=== PATIENT | male | born 1985 | race African-American/Black ===

== ENCOUNTER 2019-05-27 10:52 | Emergency (ER) | payer OTHER ==
[2019-05-27] VITALS (11 sets, daily range): BP systolic 109–122; BP diastolic 60–72
[~2019-05-27] VITALS: Ht 167.6 cm; Wt 81.6 kg
[2019-05-27] MEDS ORDERED: DiphenhydrAMINE 50mg/ml Inj IM ONE (11:00)
[2019-05-27] MEDS ORDERED: Haloperidol 5mg/ml Inj IM ONE (11:00)
[2019-05-27] MEDS ORDERED: LORazepam Inj 2mg/ml 1ml IM ONE (11:00)
[2019-05-27] MEDS ORDERED: LORazepam Inj 2mg/ml 1ml ONE (11:49)
[2019-05-27] MEDS ORDERED: Haloperidol 5mg/ml Inj ONE (11:49)
[2019-05-27] MEDS ORDERED: DiphenhydrAMINE 50mg/ml Inj ONE (11:50)
--- NOTE | 2019-05-27 11:56 | NUR ---
ED Nurse Note: Bal Day [employer] Worker by the bedside. Per Dr. Britt, CT head can be done after obtaining blood sample. UA SEN TO LAB
--- NOTE | 2019-05-27 12:39 | NUR ---
ED Nurse Note:' patient taken to CT
[2019-05-27 12:50] LABS: ANION GAP 15 mmol/L (5-15); BLOOD UREA NITROGEN 11 mg/dL (7-18); CALCIUM 8.7 MG/DL (8.5-10.1); CARBON DIOXIDE 22 MMOL/L (21-32); CHLORIDE 99 MMOL/L (98-107); POTASSIUM 3.2 MMOL/L (3.5-5.1); SODIUM 135 MMOL/L (136-145)
[2019-05-27 12:51] LABS: APPEARANCE,URINE CLEAR; BILIRUBIN, URINE NEGATIVE (NEGATIVE); GLUCOSE, URINE (UA) NEGATIVE (NEGATIVE); LEUKOCYTE ESTERASE ,URINE NEGATIVE (NEGATIVE); NITRITE,URINE NEGATIVE (NEGATIVE); PH,URINE 5 (4.5-8.0); PROTEIN,URINE NEGATIVE (NEGATIVE)
[2019-05-27 12:51] LABS: BASOPHILS % (AUTO) 0.7 % (0.0-2.0); EOSINOPHILS % (AUTO) 1.1 % (0.0-3.0); HEMATOCRIT 42.2 % (42.0-52.0); HEMOGLOBIN 13.9 G/DL (14.2-18.0); LYMPHOCYTES % (AUTO) 12.1 % (20.0-45.0); MEAN CORPUSCULAR VOLUME 99 FL (80-99); MONOCYTES % (AUTO) 10.6 % (1.0-10.0); NEUTROPHILS % (AUTO) 75.5 % (45.0-75.0); PLATELET COUNT 274 K/UL (150-450); RED BLOOD COUNT 4.26 M/UL (4.70-6.10); WHITE BLOOD COUNT 9.9 K/UL (4.8-10.8)
[2019-05-27 12:55] LABS: COLOR,URINE PALE YELLOW; KETONES,URINE 3+ (NEGATIVE); UROBILINOGEN,URINE NORMAL MG/DL (0.0-1.0)
--- NOTE | 2019-05-27 13:01 | Diagnostic Imaging Report ---
Indication: Altered mental status Technique: Continuous helical CT scanning of the head was performed without intravenous contrast material. Axial and coronal 5 mm sections were generated. Radiation dose was minimized using automated exposure control Dose: Total Dose Length Product - DLP 1435.[address] Dose Index - CTDIvol(s) 70.38 mGy. Comparison: None FINDINGS: There is no acute intracranial hemorrhage, mass effect or cortical edema. There is no shift of the midline structures. Jameson-white differentiation appears preserved. The ventricles, cisterns and sulci are normal for age. Mastoid air cells are clear. Minimal mucosal thickening noted in the paranasal sinuses. There is no depressed calvarial fracture. IMPRESSION: No evidence of acute intracranial hemorrhage, mass effect or cortical edema. No depressed skull fracture. The CT scanner at [facility] is accredited by the [employer] and the scans are performed using protocols designed to limit radiation exposure to as low as reasonably achievable to attain images of sufficient resolution adequate for diagnostic evaluation.
[2019-05-27 13:08] LABS: ALANINE AMINOTRANSFERASE 39 U/L (12-78); ALBUMIN 3.8 G/DL (3.4-5.0); ALBUMIN/GLOBULIN RATIO 0.9 (1.0-2.7); ALKALINE PHOSPHATASE 109 U/L (46-116); ASPARTATE AMINO TRANSFERASE 91 U/L (15-37); BILIRUBIN,TOTAL 2.4 MG/DL (0.2-1.0)
[2019-05-27 13:21] LABS: BILIRUBIN,DIRECT 0.6 MG/DL (0.0-0.3); CREATINE KINASE 2504 U/L (26-308)
--- NOTE | 2019-05-27 13:35 | Diagnostic Imaging Report ---
Indication: Altered mental status, chest pain Technique: XRAY Chest 1v Comparison: None Findings: Heart size and mediastinal contours are within normal limits for AP technique. There is no focal airspace consolidation, pneumothorax or pleural effusion. Remote/healed right-sided rib fractures. Degenerative changes noted in the left shoulder. Osseous structures demonstrate no acute abnormality. Impression: No definite radiographic evidence of acute cardiopulmonary disease.
--- NOTE | 2019-05-27 13:51 | NUR ---
ED Nurse Note: called lab and spoke with Craig that lactic reflex needs to be drawn. patient is a hard stick.
--- NOTE | 2019-05-27 15:08 | NUR ---
ED Nurse Note: notified Otilio Maven7 regarding the need for lab draw
--- NOTE | 2019-05-27 15:34 | Emergency Room Report ---
History of Present Illness General Chief Complaint: Altered Level of Consciousness Source: EMS (Jesu Britt MD) Source: Patient (João Michele MD) Present Illness HPI Patient brought by EMS for altered level of consciousness picked up at a bus stop. There is some suggestion of multiple drug ingestions. Paramedics suspect possible bath salts. There is also alleged alcohol ingestion. Patient' s been combative and they were able to check blood sugar that was normal. They are unable to start an IV. There is no evidence of head trauma. They are unable to ascertain the patient's identity. No further history is available. (Jesu Britt MD) Allergies: Coded Allergies: UNABLE TO ASSESS (Unverified , 05/27/19) Patient History Limited by: medical condition Social History: Reports: alcohol use - See labs, drug use - See labs Social History Narrative From bus stop. Suspected drug and alcohol ingestion. Reviewed Nursing Documentation: PMH: Agreed; PSxH: Agreed (Jesu Britt MD) Nursing Documentation-PMH Past Medical History Deferred: Patient Unconscious (Jesu Britt MD) Review of Systems All Other Systems: limited (Jesu Britt MD) Physical Exam Vital Signs Date Time Temp Pulse Resp B/P (MAP) Pulse Ox O2 Delivery O2 Flow Rate FiO2 05/27/19 10:44 100 18 125/77 (93) 98 Room Air 05/27/19 12:01 97.1 General Appearance: non-toxic, mild distress, lethargic, Stupor - Not responding to painful stimuli Eyes: bilateral eye PERRL, bilateral eye abnormal EOM - Disconjugate gaze, bilateral eye Scleral Injection, bilateral eye other - No rotatory nystagmus ENT: dry mucus membranes - No lingual macerations, other - Positive gag reflex Neck: supple Respiratory: lungs clear, normal breath sounds Cardiovascular #1: regular rate, rhythm Cardiovascular #2: 2+ radial (R) Gastrointestinal: decreased bowel sounds, scaphoid Musculoskeletal: other - Nonpurposeful movement of extremities with apparent full range of motion without deformity Neurologic: motor strength/tone normal, DTRs symmetric, no Babinski, other - Underscore responsive to painful stimuli Psychiatric: other - Stupor Skin: other - There are without abrasions or hematomata (Jesu Britt MD) Last 24 Hour Vital Signs Date Time Temp Pulse Resp B/P (MAP) Pulse Ox O2 Delivery O2 Flow Rate FiO2 8/9/19 16:42 97.5 92 16 115/62 98 Room Air 05/27/19 15:05 97.1 87 14 109/60 100 Room Air 05/27/19 12:15 92 17 100 Room Air 05/27/19 12:07 98 17 98 Room Air 05/27/19 12:01 97.1 88 16 117/61 100 Room Air 05/27/19 11:59 100 18 Room Air 05/27/19 11:52 72 18 99 Room Air 05/27/19 11:37 80 19 100 Room Air 05/27/19 11:22 82 19 100 Room Air 05/27/19 11:07 72 18 99 Room Air 05/27/19 10:52 80 17 100 Room Air 05/27/19 10:44 100 18 125/77 (93) 98 Room Air Sp02 EP Interpretation: reviewed, normal General Appearance: well appearing, no apparent distress, alert Head: normocephalic, atraumatic Eyes: bilateral eye PERRL, bilateral eye EOMI ENT: uvula midline, moist mucus membranes Neck: supple, thyroid normal, supple/symm/no masses Respiratory: lungs clear, no respiratory distress, no retraction, no accessory muscle use Cardiovascular #1: normal peripheral pulses, regular rate, rhythm, no edema, no gallop, no murmur Gastrointestinal: non tender, soft, no guarding, no rebound Musculoskeletal: normal inspection Neurologic: alert, oriented x3 Psychiatric: mood/affect normal Skin: no rash, warm/dry (João Michele MD) Procedures Critical Care Time Critical Care Time Total Critical Care Time: 90 min bedside evaluation and treatment excludes procedures (EKG). Reason for critical care: Stupor, repeated evaluations, restraints, sedation, elevated lactic acid, elevated CPK with repeated lab evaluations Possible complications: hypotension, hypertension, [place], shock, arrhythmias, metabolic acidosis, end organ damage, respiratory failure. Interventions: Restraints, sedation, CO2 monitoring, repeated evaluations, repeat lab evaluations, IV hydration Course: Patient presents with deep stupor and combative behavior. Restraints applied this patient unaware of combativeness and danger to self and others. Sedation ordered. Due to the stupor CO2 monitoring performed. Repeated examinations and evaluations with sedation. Labs significant for elevated lactic acid and CPK. IV hydration increased. No evidence of infectious source. Neurologic exam slightly improving but patient still lethargic and minimally responsive to painful stimuli. CT head without lesions. Airway and respiratory systems stable. Repeat labs show improving CPK, normal renal function and improving lactic acid. Patient signed out to covering physician for reevaluation. Consultations: nursing staff, EMS, RT Performed by: Dr. Britt Tolerated well condition = critical but improving (Jesu Britt MD) Medical Decision Making Homeless Attestation I, The treating physician Dr. Michele, have assessed and agrees that patient is medically stable for discharge to an outpatient disposition. (João Michele MD) Diagnostic Impression: Primary Impression: Altered level of consciousness Additional Impressions: Substance abuse Alcohol intoxication Qualified Codes: F10.929 - Alcohol use, unspecified with intoxication, unspecified Rhabdomyolysis Qualified Codes: M62.82 - Rhabdomyolysis Elevated lactic acid level ER Course Patient presented via EMS with stupor. Differential includes drug ingestion, alcohol ingestion, head trauma with bleed, electrolyte imbalance, rhabdomyolysis , renal failure, dehydration amongst others. Patient is combative and needs to be sedated and restrained. Evaluation will be with EKG, chest x-ray, CT the head and labs. The patient will be treated with IV hydration. As the patient has decreased mentation with sedation CO2 monitoring will be performed. Sedated. Restraints d/c @ 12:15. CO2 monitoring not increasing. Elevated lactic acid and CPK. IV hydration increased. Patient still somnolent but slightly more responsive to painful stimuli. Labs repeated. Patient continues to be lethargic. CT and chest x-ray unremarkable. Positive amphetamines, cocaine and alcohol. See critical care note. Signed out to Dr. Michele. Laboratory Tests Test 05/27/19 11:35 05/27/19 12:05 05/27/19 15:30 Urine Color Pale yellow Urine Appearance Clear Urine pH 5 (4.5-8.0) Urine Specific [place] 1.015 (1.005-1.035) Urine Protein Negative (NEGATIVE) Urine Glucose (UA) Negative (NEGATIVE) Urine Ketones 3+ (NEGATIVE) H Urine Blood Negative (NEGATIVE) Urine Nitrite Negative (NEGATIVE) Urine Bilirubin Negative (NEGATIVE) Urine Urobilinogen Normal MG/DL (0.0-1.0) Urine Leukocyte Esterase Negative (NEGATIVE) Urine Opiates Screen Negative (NEGATIVE) Urine Barbiturates Screen Negative (NEGATIVE) Phencyclidine (PCP) Screen Negative (NEGATIVE) Urine Amphetamines Screen Positive (NEGATIVE) H Urine Benzodiazepines Screen Negative (NEGATIVE) Urine Cocaine Screen Positive (NEGATIVE) H Urine Marijuana (THC) Screen Negative (NEGATIVE) White Blood Count 9.9 K/UL (4.8-10.8) Red Blood Count 4.26 M/UL (4.70-6.10) L Hemoglobin 13.9 G/DL (14.2-18.0) L Hematocrit 42.2 % (42.0-52.0) Mean Corpuscular Volume 99 FL (80-99) Mean Corpuscular Hemoglobin 32.6 PG (27.0-31.0) H Mean Corpuscular Hemoglobin Concent 32.9 G/DL (32.0-36.0) Red Cell Distribution Width 14.0 % (11.6-14.8) Platelet Count 274 K/UL (150-450) Mean Platelet Volume 7.2 FL (6.5-10.1) Neutrophils (%) (Auto) 75.5 % (45.0-75.0) H Lymphocytes (%) (Auto) 12.1 % (20.0-45.0) L Monocytes (%) (Auto) 10.6 % (1.0-10.0) H Eosinophils (%) (Auto) 1.1 % (0.0-3.0) Basophils (%) (Auto) 0.7 % (0.0-2.0) Sodium Level 135 MMOL/L (136-145) L 139 MMOL/L (136-145) Potassium Level 3.2 MMOL/L (3.5-5.1) L 4.1 MMOL/L (3.5-5.1) Chloride Level 99 MMOL/L (98-107) 106 MMOL/L (98-107) Carbon Dioxide Level 22 MMOL/L (21-32) 23 MMOL/L (21-32) Anion Gap 15 mmol/L (5-15) 10 mmol/L (5-15) Blood Urea Nitrogen 11 mg/dL (7-18) 9 mg/dL (7-18) Creatinine 1.0 MG/DL (0.55-1.30) 0.8 MG/DL (0.55-1.30) Estimate Glomerular Filtration Rate > 60 mL/min (>60) > 60 mL/min (>60) Glucose Level 82 MG/DL (74-106) 89 MG/DL (74-106) Lactic Acid Level 3.70 mmol/L (0.4-2.0) H 2.40 mmol/L (0.66-2.22) H Calcium Level 8.7 MG/DL (8.5-10.1) 7.9 MG/DL (8.5-10.1) L Total Bilirubin 2.4 MG/DL (0.2-1.0) H 1.2 MG/DL (0.2-1.0) H Direct Bilirubin 0.6 MG/DL (0.0-0.3) H 0.4 MG/DL (0.0-0.3) H Aspartate Amino Transferase (AST) 91 U/L (15-37) H 86 U/L (15-37) H Alanine Aminotransferase (ALT) 39 U/L (12-78) 37 U/L (12-78) Alkaline Phosphatase 109 U/L (46-116) 103 U/L (46-116) Total Creatine Kinase 2504 U/L (26-308) H 2180 U/L (26-308) H Troponin I 0.000 ng/mL (0.000-0.056) Total Protein 7.9 G/DL (6.4-8.2) 7.2 G/DL (6.4-8.2) Albumin 3.8 G/DL (3.4-5.0) 3.4 G/DL (3.4-5.0) Globulin 4.1 g/dL 3.8 g/dL Albumin/Globulin Ratio 0.9 (1.0-2.7) L 0.9 (1.0-2.7) L Salicylates Level < 0.2 ug/mL (2.8-20) L Acetaminophen Level < 2 MCG/ML (10-30) L Serum Alcohol 297 mg/dL (Jesu Britt MD) ER Course Signout received from Dr. Britt Reevaluation 6:24 PM, patient back to baseline he is able to state his name knows where he is, he has no complaints he states he wants a turkey sandwich and he wants to sleep a little longer before his discharge he does not recall taking any drugs, he denies any chest pain shortness of breath, physical exam is unremarkable Patient eating, feels better Patient's labs are trending down, patient received another 2 L in addition, patient counseled that he has some muscle damage and he needs to stay hydrated, will disposition patient home with return precautions Laboratory Tests Test 05/27/19 11:35 05/27/19 12:05 05/27/19 15:30 Urine Color Pale yellow Urine Appearance Clear Urine pH 5 (4.5-8.0) Urine Specific [place] 1.015 (1.005-1.035) Urine Protein Negative (NEGATIVE) Urine Glucose (UA) Negative (NEGATIVE) Urine Ketones 3+ (NEGATIVE) H Urine Blood Negative (NEGATIVE) Urine Nitrite Negative (NEGATIVE) Urine Bilirubin Negative (NEGATIVE) Urine Urobilinogen Normal MG/DL (0.0-1.0) Urine Leukocyte Esterase Negative (NEGATIVE) Urine Opiates Screen Negative (NEGATIVE) Urine Barbiturates Screen Negative (NEGATIVE) Phencyclidine (PCP) Screen Negative (NEGATIVE) Urine Amphetamines Screen Positive (NEGATIVE) H Urine Benzodiazepines Screen Negative (NEGATIVE) Urine Cocaine Screen Positive (NEGATIVE) H Urine Marijuana (THC) Screen Negative (NEGATIVE) White Blood Count 9.9 K/UL (4.8-10.8) Red Blood Count 4.26 M/UL (4.70-6.10) L Hemoglobin 13.9 G/DL (14.2-18.0) L Hematocrit 42.2 % (42.0-52.0) Mean Corpuscular Volume 99 FL (80-99) Mean Corpuscular Hemoglobin 32.6 PG (27.0-31.0) H Mean Corpuscular Hemoglobin Concent 32.9 G/DL (32.0-36.0) Red Cell Distribution Width 14.0 % (11.6-14.8) Platelet Count 274 K/UL (150-450) Mean Platelet Volume 7.2 FL (6.5-10.1) Neutrophils (%) (Auto) 75.5 % (45.0-75.0) H Lymphocytes (%) (Auto) 12.1 % (20.0-45.0) L Monocytes (%) (Auto) 10.6 % (1.0-10.0) H Eosinophils (%) (Auto) 1.1 % (0.0-3.0) Basophils (%) (Auto) 0.7 % (0.0-2.0) Sodium Level 135 MMOL/L (136-145) L 139 MMOL/L (136-145) Potassium Level 3.2 MMOL/L (3.5-5.1) L 4.1 MMOL/L (3.5-5.1) Chloride Level 99 MMOL/L (98-107) 106 MMOL/L (98-107) Carbon Dioxide Level 22 MMOL/L (21-32) 23 MMOL/L (21-32) Anion Gap 15 mmol/L (5-15) 10 mmol/L (5-15) Blood Urea Nitrogen 11 mg/dL (7-18) 9 mg/dL (7-18) Creatinine 1.0 MG/DL (0.55-1.30) 0.8 MG/DL (0.55-1.30) Estimate Glomerular Filtration Rate > 60 mL/min (>60) > 60 mL/min (>60) Glucose Level 82 MG/DL (74-106) 89 MG/DL (74-106) Lactic Acid Level 3.70 mmol/L (0.4-2.0) H 2.40 mmol/L (0.66-2.22) H Calcium Level 8.7 MG/DL (8.5-10.1) 7.9 MG/DL (8.5-10.1) L Total Bilirubin 2.4 MG/DL (0.2-1.0) H 1.2 MG/DL (0.2-1.0) H Direct Bilirubin 0.6 MG/DL (0.0-0.3) H 0.4 MG/DL (0.0-0.3) H Aspartate Amino Transferase (AST) 91 U/L (15-37) H 86 U/L (15-37) H Alanine Aminotransferase (ALT) 39 U/L (12-78) 37 U/L (12-78) Alkaline Phosphatase 109 U/L (46-116) 103 U/L (46-116) Total Creatine Kinase 2504 U/L (26-308) H 2180 U/L (26-308) H Troponin I 0.000 ng/mL (0.000-0.056) Total Protein 7.9 G/DL (6.4-8.2) 7.2 G/DL (6.4-8.2) Albumin 3.8 G/DL (3.4-5.0) 3.4 G/DL (3.4-5.0) Globulin 4.1 g/dL 3.8 g/dL Albumin/Globulin Ratio 0.9 (1.0-2.7) L 0.9 (1.0-2.7) L Salicylates Level < 0.2 ug/mL (2.8-20) L Acetaminophen Level < 2 MCG/ML (10-30) L Serum Alcohol 297 mg/dL (João Michele MD) EKG Diagnostic Results Rate: normal Rhythm: NSR ST Segments: no acute changes (Jesu Britt MD) Rhythm Strip Diag. Results EP Interpretation: yes Rhythm: NSR, no PVC's, no ectopy (Jesu Britt MD) Rhythm Strip Time: 18:27 EP Interpretation: yes Rate: 106 Rhythm: other - sinus tachycardia (João Michele MD) Chest X-Ray Diagnostic Results Chest X-Ray Diagnostic Results : Chest X-Ray Ordered: Yes # of Views/Limited/Complete: 1 View Indication: Other EP Interpretation: Yes Interpretation: no consolidation, no effusion, no pneumothorax Impression: No acute disease Electronically Signed by: Electronically signed by Jesu Britt MD (Jesu Britt MD) Chest X-Ray Diagnostic Results : Chest X-Ray Ordered: Yes # of Views/Limited/Complete: 1 View Indication: Other - AMS EP Interpretation: Yes Interpretation: no acute cardiopulmonary disease Impression: No acute disease Electronically Signed by: João Michele MD (João Michele MD) CT/MRI/US Diagnostic Results CT/MRI/US Diagnostic Results : Imaging Test Ordered: Head Impression No bleed or fracture (Jesu Britt MD) CT/MRI/US Diagnostic Results : Impression Procedure: CT Head no Contrast Indication: Altered mental status Technique: Continuous helical CT scanning of the head was performed without intravenous contrast material. Axial and coronal 5 mm sections were generated. Radiation dose was minimized using automated exposure control Dose: Total Dose Length Product - DLP 1435.[address] Dose Index - CTDIvol(s) 70.38 mGy. Comparison: None FINDINGS: There is no acute intracranial hemorrhage, mass effect or cortical edema. There is no shift of the midline structures. Jameson-white differentiation appears preserved. The ventricles, cisterns and sulci are normal for age. Mastoid air cells are clear. Minimal mucosal thickening noted in the paranasal sinuses. There is no depressed calvarial fracture. IMPRESSION: No evidence of acute intracranial hemorrhage, mass effect or cortical edema. No depressed skull fracture. The CT scanner at [facility] is accredited by the [employer] and the scans are performed using protocols designed to limit radiation exposure to as low as reasonably achievable to attain images of sufficient resolution adequate for diagnostic evaluation. Dictated By: Dontrell Lopez M.D. Electronically Signed By: Dontrell Lopez M.D. Signed Date/Time 05/27/19 4621 CC: Jesu Britt MD (João Michele MD) Status: improved (Jesu Britt MD) Disposition: HOME, SELF-CARE Condition: Improved Referrals: NOT CHOSEN IPA/,REFERRING (PCP) [facility] Patient Instructions: Finding Treatment for Addiction, Hypophosphatemia, Stimulant Use Disorder-Amphetamines Additional Instructions: The patient was provided with discharge instructions, notified to follow-up with a primary care doctor and or specialist in the next 24-48 hours, and to return to the ED if they have worsening of their symptoms. Please note that this report is being documented using ITDatabase technology. This can lead to erroneous entry secondary to incorrect interpretation by the dictating instrument. Jesu Britt MD May 27, 2019 15:34 João Michele MD May 27, 2019 18:29
[2019-05-27 15:56] LABS: ANION GAP 10 mmol/L (5-15); BLOOD UREA NITROGEN 9 mg/dL (7-18); CALCIUM 7.9 MG/DL (8.5-10.1); CARBON DIOXIDE 23 MMOL/L (21-32); CHLORIDE 106 MMOL/L (98-107); CREATININE 0.8 MG/DL (0.55-1.30); POTASSIUM 4.1 MMOL/L (3.5-5.1); SODIUM 139 MMOL/L (136-145)
[2019-05-27 16:10] LABS: ALANINE AMINOTRANSFERASE 37 U/L (12-78); ALBUMIN 3.4 G/DL (3.4-5.0); ALBUMIN/GLOBULIN RATIO 0.9 (1.0-2.7); ALKALINE PHOSPHATASE 103 U/L (46-116); ASPARTATE AMINO TRANSFERASE 86 U/L (15-37); BILIRUBIN,TOTAL 1.2 MG/DL (0.2-1.0); CREATINE KINASE 2180 U/L (26-308)
[2019-05-27 16:12] LABS: BILIRUBIN,DIRECT 0.4 MG/DL (0.0-0.3)
[2019-05-27] MEDS ORDERED: Ammonia Inhalant 0.33mL 1 Amp INH ONE (18:30)
--- NOTE | 2019-05-27 19:00 | NUR ---
HAND-OFF: Report given to Brigette WERNER. patient is now aler awake ambulatory.
--- NOTE | 2019-05-27 19:30 | NUR ---
ER DISCHARGE NOTE: Patient is cleared to be discharged per ERMD, pt is aox4, on room air, with stable vital signs. pt was given dc and prescription instructions, pt was able to verbalize understanding, pt id band and iv site removed without complications. pt is able to ambulate with steady gait. pt took all belongings.
== END 2019-05-27 19:30 | disposition home or self-care (01) ==
LOC: EDBD 10:52 → EMR 12:30 → EDBD 12:30 → EMR 19:30
DX: R41.82 Altered mental status, unspecified (principal); F19.10 Other psychoactive substance abuse, uncomplicated; F10.129 Alcohol abuse with intoxication, unspecified; M62.82 Rhabdomyolysis; R79.89 Other specified abnormal findings of blood chemistry
CPT/HCPCS: 36415; 70450; 71045; 80053; 80307; 80329; 81003; 82248; 82550; 83605; 84484; 85025; 96360; 96361; 96372; 99291; 99292; J1200; J1630